=== PATIENT | male | born 1975 | race Caucasian/White ===

== ENCOUNTER → 2016-12-26 | Outpatient (CLI) | payer OTHER ==
[~2016-12-26] MED LIST: ATOR80TA PO; PANT40TA3 PO; QUET300T5 PO
== END ==
LOC: STAR 14:06
PROVIDERS: ATTEND Internal Medicine Geriatric Medicine
DX: Z02.9 Encounter for administrative examinations, unspecified (principal)

== ENCOUNTER 2017-01-07 11:30 | Day surgery (SDC) | payer OTHER ==
[~2017-01-07] VITALS: Ht 177.8 cm; Wt 85.5 kg
[2017-01-07] MEDS ORDERED: LACTATED RINGERS 1,000 ML IV SCH (11:51)
[2017-01-07 11:52] VITALS: BP 116/79
[2017-01-07] MEDS ORDERED: FENTANYL PF 100 MCG/2ML ONE (12:13)
[2017-01-07] MEDS ORDERED: SUCCINYLCHOLINE 20 MG/ML, 10ML ONE (13:21)
[2017-01-07] MEDS ORDERED: PROPOFOL 10 MG/ML, 20ML ONE (13:21)
[2017-01-07] MEDS ORDERED: DEXAMETHASONE 4 MG/ML, 1ML ONE (13:21)
[2017-01-07] MEDS ORDERED: ONDANSETRON 2MG/ML, 2ML ONE (13:21)
[2017-01-07] MEDS ORDERED: FENTANYL PF 100 MCG/2ML IV PRN (14:00)
[2017-01-07] MEDS ORDERED: ONDANSETRON 2MG/ML, 2ML IVPush PRN (14:00)
[2017-01-07] MEDS ORDERED: LABETALOL 5MG/ML, 20ML IV PRN (14:00)
[2017-01-07] MEDS ORDERED: hydrALAzine 20 MG/ML, 1ML IV PRN (14:00)
[2017-01-07] MEDS ORDERED: METOCLOPRAMIDE 5 MG/ML, 2ML IV PRN (14:00)
[2017-01-07] MEDS ORDERED: OXYcodone 5 MG/5 ML ORAL.SOL UDC PO PRN (14:00)
[2017-01-07] MEDS ORDERED: HYDROmorphone 1 MG/ML, 1ML IV PRN (14:00)
[2017-01-07] MEDS ORDERED: ACETAMINOPHEN 325 MG TABLET PO PRN (14:00)
== END 2017-01-07 15:45 ==
LOC: OR 11:30
PROVIDERS: ATTEND Internal Medicine Geriatric Medicine
DX: K91.89 Other postprocedural complications and disorders of digestive system (principal); F41.9 Anxiety disorder, unspecified; E78.5 Hyperlipidemia, unspecified; I10 Essential (primary) hypertension; K21.9 Gastro-esophageal reflux disease without esophagitis; F32.9 Major depressive disorder, single episode, unspecified; Y83.8 Other surgical procedures as the cause of abnormal reaction of the patient, or of later complication, without mention of misadventure at the time of the procedure; Y82.8 Other medical devices associated with adverse incidents; Z90.49 Acquired absence of other specified parts of digestive tract; Z98.890 Other specified postprocedural states
CPT/HCPCS: 43275; 74328; J0330; J1100; J2405; J2704; J3010; J7120

== ENCOUNTER 2017-01-21 05:17 | Day surgery (SDC) | payer OTHER ==
[~2017-01-21] VITALS: Ht 180.3 cm; Wt 81.9 kg
[2017-01-21] MEDS ORDERED: LACTATED RINGERS 1,000 ML IV SCH (06:10)
[2017-01-21 06:14] VITALS: BP 126/86
[2017-01-21] MEDS ORDERED: LIDOCAINE 1%, 2ML SQ PRN (06:30)
[2017-01-21] MEDS ORDERED: EPINEPHRINE 1 MG/ML, 1ML ONE (06:42)
[2017-01-21] MEDS ORDERED: BUPIVACAINE/PF 0.5% ONE ×2 (06:42)
[2017-01-21] MEDS ORDERED: MIDAZOLAM 1 MG/ML, 2ML ONE ×2 (07:24)
[2017-01-21] MEDS ORDERED: FENTANYL PF 100 MCG/2ML ONE ×3 (07:24→09:38)
[2017-01-21] MEDS ORDERED: KETOROLAC 30 MG/1 ML ONE (07:38)
[2017-01-21] MEDS ORDERED: CEFAZOLIN 1,000 MG ONE (07:38)
[2017-01-21] MEDS ORDERED: ROCURONIUM 10 MG/ML ONE (07:38)
[2017-01-21] MEDS ORDERED: PROPOFOL 10 MG/ML, 20ML ONE (07:38)
[2017-01-21] MEDS ORDERED: DEXAMETHASONE 4 MG/ML, 1ML ONE (07:38)
[2017-01-21] MEDS ORDERED: GLYCOPYRROLATE 0.2MG/1ML ONE (07:38)
[2017-01-21] MEDS ORDERED: NEOSTIGMINE 1 MG/ML, 10ML ONE (07:38)
[2017-01-21] MEDS ORDERED: BUPIVACAINE/PF-EPI 0.5% 1:200K IM ONE (08:08)
[2017-01-21] MEDS ORDERED: hydrALAzine 20 MG/ML, 1ML IV PRN (08:30)
[2017-01-21] MEDS ORDERED: MIDAZOLAM 1 MG/ML, 2ML IV PRN (08:30)
[2017-01-21] MEDS ORDERED: OXYcodone 5 MG/5 ML ORAL.SOL UDC PO PRN (08:30)
[2017-01-21] MEDS ORDERED: HYDROmorphone 1 MG/ML, 1ML IV PRN (08:30)
[2017-01-21] MEDS ORDERED: ONDANSETRON 2MG/ML, 2ML IVPush PRN (08:30)
[2017-01-21] MEDS ORDERED: MEPERIDINE/PF 25MG/0.5ML IVPush PRN (08:30)
[2017-01-21] MEDS ORDERED: LABETALOL 5MG/ML, 20ML IV PRN (08:30)
[2017-01-21] MEDS ORDERED: ALBUTEROL/IPRATROPIUM 2.5MG/0.5MG, 3 ML NPPB PRN (08:30)
[2017-01-21] MEDS ORDERED: PROMETHAZINE 25 MG/ML, 1ML IV PRN (08:30)
[2017-01-21] MEDS ORDERED: ACETAMINOPHEN 325 MG TABLET PO PRN (08:30)
[2017-01-21] MEDS ORDERED: HYDROmorphone 2 MG/ML, 1ML ONE (08:58)
[2017-01-21] MEDS ORDERED: OMNIPAQUE 350 MG/ML, 50 ML BOTTLE ONE (09:15)
[2017-01-21] MEDS ORDERED: OXYcodone 5 MG/5 ML ORAL.SOL UDC ONE (09:18)
[2017-01-21] MEDS ORDERED: ACETAMINOPHEN 650 MG/20.3 ML UDC ONE (09:18)
[2017-01-21] MEDS: FENTANYL PF 100 MCG/2ML IV PRN ×2 (09:30→09:39)
[2017-01-21] MEDS ORDERED: OXYcodone IR 5MG TABLET PO PRN (12:00)
[2017-01-21] MEDS ORDERED: OXYcodone/APAP 5/325MG TABLET ONE (17:00)
[2017-01-21] MEDS ORDERED: OXYcodone/APAP 5/325MG TABLET PO PRN (17:30)
== END 2017-01-21 17:25 ==
LOC: OUT 05:17
PROVIDERS: ATTEND Internal Medicine Geriatric Medicine
DX: K83.9 Disease of biliary tract, unspecified (principal); F17.200 Nicotine dependence, unspecified, uncomplicated; E78.5 Hyperlipidemia, unspecified; Z72.89 Other problems related to lifestyle
CPT/HCPCS: 43275; 44180; 74330; 88305; J0171; J0690; J1100; J1170; J1885; J2250; J2704; J2710; J3010; J3490; J7120; Q9967; C1769